=== PATIENT | female | born 1995 | race Caucasian/White ===

== ENCOUNTER 2019-02-07 21:30 | Outpatient (CLI) | payer OTHER, SELFPAY ==
[2019-02-07 22:07] VITALS: BMI 29.5
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
== END 2019-02-07 22:22 | disposition home or self-care (01) ==
LOC: WPOUT 21:52 → OBT 21:53
PROVIDERS: Visit Provider Obstetrics & Gynecology
DX: O9A.312 Physical abuse complicating pregnancy, second trimester (principal); S09.90XA Unspecified injury of head, initial encounter; S40.022A Contusion of left upper arm, initial encounter; S30.0XXA Contusion of lower back and pelvis, initial encounter; Y07.03 Male partner, perpetrator of maltreatment and neglect; Z87.891 Personal history of nicotine dependence; Z3A.24 24 weeks gestation of pregnancy
CPT/HCPCS: 59025; 59050; 99218; 99282; G0378

== ENCOUNTER 2019-02-07 22:55 | Emergency (ER) | payer OTHER, SELFPAY ==
[2019-02-07 22:07] VITALS: BMI 29.5
[2019-02-07 22:55] VITALS: BP 128/69; PULSE 107; RESP 20; TEMP 36.6; O2SAT 97; BMI 29.5
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
[2019-02-07 23:41] VITALS: BP 114/80; PULSE 76; RESP 16; O2SAT 100
== END 2019-02-07 23:42 | disposition home or self-care (01) ==
PROVIDERS: Emergency Provider Emergency Medicine
DX: O9A.312 Physical abuse complicating pregnancy, second trimester (principal); S09.90XA Unspecified injury of head, initial encounter; S40.022A Contusion of left upper arm, initial encounter; S30.0XXA Contusion of lower back and pelvis, initial encounter; Y07.03 Male partner, perpetrator of maltreatment and neglect; Z87.891 Personal history of nicotine dependence; Z3A.24 24 weeks gestation of pregnancy
CPT/HCPCS: 99282

== ENCOUNTER 2019-05-01 06:11 | Outpatient (CLI) | payer OTHER, SELFPAY ==
[2019-05-01 06:08] VITALS: BMI 33.8
[2019-05-01 06:48] LABS: ROM Internal Control Test YES-OK TO RESULT pt. (Internal QC); ROM Patient Test Negative (Negative)
[2019-05-01] MEDS: 0.9% NaCl Peripheral Flush Adult/Peds IV (06:50)
[2019-05-01 07:11] LABS: Bacteria 0 SEEN /hpf (None Seen); Mucous, Urine 0 SEEN /hpf (<or=2+); Red Blood Cells-Urine 0 SEEN /hpf (0-5); Squamous Epithelial Cells - UA 0 SEEN /hpf (5-10); White Blood Cells 0 SEEN /hpf (0-5)
[2019-05-01 07:14] LABS: Hematocrit 37.6 % (37-47); Hemoglobin 12.9 g/dl (12.0-15.0); Mean Corp Hgb Conc 34.3 g/gl (32-36); Mean Corpuscular Hgb 31.7 pg (27.0-32.0); Mean Corpuscular Volume 92.4 fL (81-99); Mean Platelet Vol. 11.4 fl (6.2-12.0); Platelet Count 221 K/mm3 (150-450); RBC Distribution Width SD 45.8 fl (35.1-43.9); Red Blood Count 4.07 M/mm3 (4.2-5.4); White Blood Count 13.3 K/mm3 (4.4-11.0)
[2019-05-01 07:15] LABS: Scan Indicated on CBC? Y/N NO
[2019-05-01 07:16] LABS: Color, Urine Yellow (Yellow); Glucose, Dipstick Normal (Normal); Ketone-Dipstick Negative (Negative); Leukocyte Esterase-Dipstick Negative /ul (Negative); Nitrite-Dipstick Negative (Negative); Occult Blood-Urine Negative /ul (Negative); Protein-Dipstick Negative (Negative); Specific Gravity, Urine 1.015 (1.002-1.030); Urine Bilirubin Dipstick Negative (Negative); Urine Clarity Clear (Clear); Urine Urobilinogen Normal (Normal)
[2019-05-01 07:22] LABS: Protein, Urine (Random) 6.1 mg/dL (<11.9); Protein:Creat Ratio 91 mg/g CRE (0-200)
[2019-05-01 07:23] LABS: International Normalized Ratio 0.9; Prothrombin Time (Protime)PT. 12.2 SECONDS (11.7-14.9)
[2019-05-01 07:24] LABS: Partial Thromboplast Time 26.7 Seconds (24.1-36.2)
[2019-05-01] MEDS: Acetaminophen 500 MG Tablet 1000 MG PO (07:25)
[2019-05-01 07:27] LABS: AST(SGOT) 14 U/L (15-37); Alanine Aminotransfer ALT/SGPT 14 U/L (13-56); Creatinine, Serum 0.56 mg/dL (0.55-1.02); EST Glomerular Filtration Rate 143 mL/min (>60); Est Glom Filt Rate - Afr Amer 173 mL/min (>60); Estimated Creatinine Clearance 145.01 ml/min; Uric Acid 5.8 mg/dL (2.6-6.0)
--- NOTE | 2019-05-01 08:49 | OB.TRI.HP_ITS ---
History of Present Illness Was patient seen by the physician?: Yes Reason For Visit: RULE OUT LABOR Date of Service: 05/01/19 Final REILLY: 05/26/19 Final REILLY Source: US <20 weeks Gestational age: 36 Weeks and 3 Days History of Present Illness: 24-year-old 1 para 0 who presents at 36+ weeks with headache and some contractions. Patient has been followed at [facility] and their OB unit closed so she planned delivery in [place]. care has been uneventful except for some vaginal infections which were treated and gave her a yeast infection. Baby has recently been noted to be in breech presentation. Due date confirmed with patient's phone carlos which showed a 10-week with an EDC of May 26, 2019. Patient lives in [place]. She plans delivery in [place] if delivery is after May 15 as her significant other would be available after that time. If it is before then she said she would probably come to [place]. Allergies No Known Allergies Allergy (Verified 05/01/19 06:10) Laboratory Studies: Laboratory Tests 05/01/19 05/01/19 05/01/19 Range/Units 06:50 06:50 06:50 WBC (4.4-11.0) K/mm3 RBC (4.2-5.4) M/mm3 Hgb (12.0-15.0) g/dl Hct (37-47) % MCV (81-99) fL MCH (27.0-32.0) pg MCHC (32-36) g/gl RDW (11.6-14.6) % RDW Differential (35.1-43.9) fl Plt Count (150-450) K/mm3 MPV (6.2-12.0) fl PT 12.2 (11.7-14.9) SECONDS INR 0.9 APTT 26.7 (24.1-36.2) Seconds Creatinine 0.56 (0.55-1.02) mg/dL Estim Creat Clear Calc 145.01 ml/min Est GFR (MDRD) Af Amer 173 (>60) mL/min Est GFR (MDRD) Non-Af 143 (>60) mL/min Uric Acid 5.8 (2.6-6.0) mg/dL AST 14 L (15-37) U/L ALT 14 (13-56) U/L Urine Color (Yellow) Urine Clarity (Clear) Urine pH (5.0 - 8.0) Ur Specific [place] (1.002-1.030) Urine Protein (Negative) mg/dl Urine Glucose (UA) (Normal) mg/dl Urine Ketones (Negative) mg/dl Urine Occult Blood (Negative) /ul Urine Nitrite (Negative) Urine Bilirubin (Negative) mg/dL Urine Urobilinogen (Normal) mg/dl Ur Leukocyte Esterase (Negative) /ul Urine RBC (0-5) /hpf Urine WBC (0-5) /hpf Ur Squamous Epith Cells (5-10) /hpf Urine Bacteria (None Seen) /hpf Urine Mucus (<or=2+) /hpf U Random Total Protein 6.1 (<11.9) mg/dL Urine Creatinine 66.90 (NO RANGE EST.) mg/dL Protein/Creatinin Ratio 91 (0-200) mg/g CRE Vag Amniotic Fld Detect (Negative) 05/01/19 05/01/19 05/01/19 Range/Units 06:50 06:50 05:45 WBC 13.3 H (4.4-11.0) K/mm3 RBC 4.07 L (4.2-5.4) M/mm3 Hgb 12.9 (12.0-15.0) g/dl Hct 37.6 (37-47) % MCV 92.4 (81-99) fL MCH 31.7 (27.0-32.0) pg MCHC 34.3 (32-36) g/gl RDW 14.0 (11.6-14.6) % RDW Differential 45.8 H (35.1-43.9) fl Plt Count 221 (150-450) K/mm3 MPV 11.4 (6.2-12.0) fl PT (11.7-14.9) SECONDS INR APTT (24.1-36.2) Seconds Creatinine (0.55-1.02) mg/dL Estim Creat Clear Calc ml/min Est GFR (MDRD) Af Amer (>60) mL/min Est GFR (MDRD) Non-Af (>60) mL/min Uric Acid (2.6-6.0) mg/dL AST (15-37) U/L ALT (13-56) U/L Urine Color Yellow (Yellow) Urine Clarity Clear (Clear) Urine pH 6.0 (5.0 - 8.0) Ur Specific [place] 1.015 (1.002-1.030) Urine Protein Negative (Negative) mg/dl Urine Glucose (UA) Normal (Normal) mg/dl Urine Ketones Negative (Negative) mg/dl Urine Occult Blood Negative (Negative) /ul Urine Nitrite Negative (Negative) Urine Bilirubin Negative (Negative) mg/dL Urine Urobilinogen Normal (Normal) mg/dl Ur Leukocyte Esterase Negative (Negative) /ul Urine RBC 0 SEEN (0-5) /hpf Urine WBC 0 SEEN (0-5) /hpf Ur Squamous Epith Cells 0 SEEN (5-10) /hpf Urine Bacteria 0 SEEN (None Seen) /hpf Urine Mucus 0 SEEN (<or=2+) /hpf U Random Total Protein (<11.9) mg/dL Urine Creatinine (NO RANGE EST.) mg/dL Protein/Creatinin Ratio (0-200) mg/g CRE Vag Amniotic Fld Detect Negative (Negative) Physical Exam General: Alert, Oriented x3, No apparent distress HEENT: Atraumatic, Normocephalic. Negative for: Thyromegaly, Lymphadenopathy Abdomen: Appropriate for Gestational Age Neurological: Deep Tendon Reflexes 2+/4 and Symmetrical, Neuro grossly intact Estimated gestational size: Appropriate for gestational size Presentation: Breech Cervix Dilation (cm): 1.5 Station: -3 Effacement (%): 50 - Per nurse check NST - FHR Rate Baby A NST Reactive:: Yes FHR Category:: Category I Impression/Plan 36+ week intrauterine with likely breech presentation with transient labor. Patient also had headache and PIH work-up is negative. Reactive nonstress test and ROM test negative. Continuing to monitor as contractions noted on monitor. If no cervical change we plan to release to home. Labor instructions given. Unable to obtain other records given that it is a Thursday today but if patient returns we will need to obtain balance of hardcopy records from her OB visits.
== END 2019-05-01 10:05 | disposition home or self-care (01) ==
LOC: WPOUT 05-02 07:58 → WP 05-03 07:27
PROVIDERS: Referring Provider Obstetrics & Gynecology; Visit Provider Obstetrics & Gynecology
DX: O32.1XX0 Maternal care for breech presentation, not applicable or unspecified (principal); R51 Headache; Z3A.36 36 weeks gestation of pregnancy
CPT/HCPCS: 36415; 59025; 59050; 81001; 82565; 82570; 84112; 84156; 84450; 84460; 84550; 85027; 85610; 85730; 99218; A4216; G0378

== ENCOUNTER 2019-05-08 14:50 | Outpatient (CLI) | payer OTHER, SELFPAY ==
[2019-05-08 15:36] VITALS: BMI 34.3
[2019-05-08 15:52] LABS: ROM Internal Control Test YES-OK TO RESULT pt. (Internal QC); ROM Patient Test Negative (Negative)
--- NOTE | 2019-05-08 20:55 | OB.TRI.NOTE ---
History of Present Illness Date of Service: 05/08/19 Was patient seen by the physician?: Yes Reason For Visit: R/O SROM Date of Service: 05/08/19 Final REILLY: 05/26/19 Final REILLY Source: US <20 weeks Gestational age: 37 Weeks and 3 Days History of Present Illness: 24 yo [id number] female at 37 3/7 wk with baby in breech presentation. Presents for ROM check after gush of fluid with picking up a large bag of dog food. Also recent intercourse within last day. No UCs noted. ROM plus test sent. Allergies No Known Allergies Allergy (Verified 05/01/19 06:10) Laboratory Studies: Laboratory Tests 05/08/19 Range/Units 15:10 Vag Amniotic Fld Detect Negative (Negative) Physical Exam General: Alert, Oriented x3, Cooperative, No apparent distress HEENT: Atraumatic Abdomen: Soft, Non Tender, Gravid Cervix Dilation (cm): 1.5 Station: -2 - No change per pt from her ofc exam. NST - FHR Rate Baby A Baseline: 120-140s with accels to 170-180 no decl Variability:: Moderate Accelerations:: 15 x 15 Decelerations:: None NST Reactive:: Yes, Appropriate for gestational age FHR Category:: Category I Uterine Activity:: Irreg UCs Impression/Plan 37 3/7 wk FALSE LABOR ROM test NEGATIVE. Likely incontinence related to lifting bag of dog food. Keep next ofc appt.
== END 2019-05-08 16:15 | disposition home or self-care (01) ==
LOC: WPOUT 15:02 → WP 15:03
PROVIDERS: Visit Provider Obstetrics & Gynecology
DX: O47.1 False labor at or after 37 completed weeks of gestation (principal); O32.1XX0 Maternal care for breech presentation, not applicable or unspecified; Z3A.37 37 weeks gestation of pregnancy
CPT/HCPCS: 59050; 84112; 99218; G0378

== ENCOUNTER 2019-06-27 17:46 | Emergency (ER) | payer OTHER, SELFPAY ==
[2019-06-27 17:47] VITALS: BP 129/78; PULSE 86; RESP 16; TEMP 36.6; O2SAT 97; BMI 31.1
--- NOTE | 2019-06-27 18:05 | CT_ITS ---
STUDY: CT ABDOMEN AND PELVIS WITH CONTRAST REASON FOR EXAM: Female, 24 years old. Lower abdominal pain. 5 weeks ago. RADIATION DOSAGE (If Supplied By Facility): CTDIvol = ( 14.48 ) mGy, DLP = ( 942.46 ) mGycm TECHNIQUE: Transaxial images were obtained from the dome of the diaphragm to the symphysis pubis without oral contrast. 100ml IV Isovue 370 was administered. Sagittal and coronal images were reconstructed. Individualized dose optimization techniques were used for this CT. COMPARISON: None. FINDINGS: The visualized lung bases are unremarkable. The visualized portions of the heart are within normal limits. Normal liver. Normal gallbladder and extrahepatic biliary system. Normal spleen. Normal pancreas. Normal bilateral adrenal glands. Normal right kidney. Normal left kidney. Normal visualized ureters. Normal visualized stomach. Normal small intestine. There is scattered colonic diverticulosis without acute inflammatory change. There is poor distention of the descending colon. The colon is otherwise unremarkable. The The appendix is visualized and appears normal. Normal abdominal aorta. Normal inferior vena cava. Normal retroperitoneum. Normal urinary bladder. Normal uterus. Normal adnexa. No pelvic lymphadenopathy. No free air or free fluid is seen within the peritoneal cavity. There is stranding across the lower abdomen suggesting prior Pfannenstiel incision. The abdominal wall is otherwise unremarkable. Normal osseous structures. CT/Abdomen/Pelvis W IV Cont ONLY IMPRESSION: No visualized acute intra-abdominal or pelvic abnormality. Electronically Signed: Thong Costa DO at 19:18 EDT Tel [phone], Service support ,
[2019-06-27] MEDS: Ketorolac 30 MG/ML Syringe IV (18:15)
--- NOTE | 2019-06-27 18:26 | ED.DCSUM_ITS ---
History of Present Illness Informant: Patient Onset: Weeks Context: Gradual Onset Timing: Continuous Current Severity: Moderate Maximum Severity: Severe Narrative: Patient is a 24-year-old female 5 weeks status post section presenting with pain at her incision site. Patient states the pain is worsened over the past 2 to 3 weeks. Pain is described as sharp. She states that she feels that she is 1 week post op again. She also notes there is discoloration she is concerned it is infectious. Patient denies any associated fever, chills, rash, nausea, vomiting, abnormal vaginal discharge, abnormal vaginal bleeding, hematuria or dysuria. Patient denies any other concerns at this time. She states that she called her PEDIATRIC ALLERGIST today who told her that they would see her at her 6 week appointment. Patient then decided to go to the ED for further evaluation. <Brianne Hu - Last Filed: 06/27/19 19:43> <Kd Loco - Last Filed: 06/27/19 21:33> Chief Complaint: Cellulitis Past Medical History Surgical History: - - C cection Smoking Status: Former smoker <Brianne Hu - Last Filed: 06/27/19 19:43> <Kd Loco - Last Filed: 06/27/19 21:33> - Allergies and Home Meds Allergies/Adverse Reactions: Allergies No Known Allergies Allergy (Verified 06/27/19 17:51) Primary Care Physician: Care Physician,No Primary [Primary Care Provider] - Doctor,Your [STAFF PHYSICIAN] - Review of Systems All systems negative except as indicated Skin: Reports: - - Pain at c section incision site <Brianne Hu - Last Filed: 06/27/19 19:43> Physical Exam Vital Signs/Narrative: Vital Signs Temp Pulse Resp BP Pulse Ox 06/27/19 17:47 97.9 F 86 16 129/78 H 97 Inital Vital Signs reviewed: Yes General: Well nourished, Well developed, No Acute Distress Head: Normocephalic, Atraumatic Eyes: Perrl, EOMI ENT: Moist mucous membranes, No rhinorrhea Neck: Supple, Nontender Cardiovascular: Regular rate, Regular rhythm, No murmurs Respiratory: No distress, CTA bilaterally, Chest nontender Abdomen: Soft, Nondistended, Normal bowel sounds, Tender - Tenderness palpation suprapubic region as well as over incision. Negative for: Guarding, Rebound tenderness Back: Nontender, Normal Inspection. Negative for: CVA tenderness Extremities: Nontender, No edema Skin: Normal color, No rash, - - Surgical incision appears to be healing well with no associated erythema, drainage, fluctuance or crepitus. There is dried what appears to be discolored Dermabond around the incision site Neurological: Alert, Oriented x3, Cranial nerves II-XII grossly intact, Normal Strength, Normal Sensation Psychological: Normal affect, Normal Mood <Brianne Hu - Last Filed: 06/27/19 19:43> Vital Signs/Narrative: Vital Signs Temp Pulse Resp BP Pulse Ox 06/27/19 20:28 84 16 121/76 H 98 06/27/19 17:47 97.9 F 86 16 129/78 H 97 <Kd Loco - Last Filed: 06/27/19 21:33> Diagnostic/Tx/Re-eval Clinical Impression(s) from Imaging Studies Abdomen/Pelvis CT 06/27/19 18:05 IMPRESSION: No visualized acute intra-abdominal or pelvic abnormality. Electronically Signed: Thong Costa DO at 19:18 EDT Tel [phone], Service support , Laboratory Data 06/27/19 06/27/19 06/27/19 18:15 18:15 18:15 WBC 10.0 RBC 4.32 Hgb 13.5 Hct 39.4 MCV 91.2 MCH 31.3 MCHC 34.3 RDW Std Deviation 39.5 RDW Coeff of [place] 11.8 Plt Count 293 MPV 10.2 Immature Gran % (Auto) 0.200 Neut % (Auto) 67.5 Lymph % (Auto) 24.8 [place] % (Auto) 5.4 Eos % (Auto) 1.9 Baso % (Auto) 0.2 Absolute Neuts (auto) 6.7 Absolute Lymphs (auto) 2.47 Nucleated RBC % 0 Sodium 140 Potassium 3.7 Chloride 106 Carbon Dioxide 28.0 Anion Gap 6 BUN 12 Creatinine 0.93 Estim Creat Clear Calc 87.32 Est GFR (MDRD) Af Amer 95 Est GFR (MDRD) Non-Af 79 BUN/Creatinine Ratio 12.9 Glucose 79 Calcium 8.9 Urine Color Yellow Urine Clarity Clear Urine pH 5.0 Ur Specific [place] 1.015 Urine Protein Negative Urine Glucose (UA) Normal Urine Ketones Negative Urine Occult Blood 25 H Urine Nitrite Negative Urine Bilirubin Negative Urine Urobilinogen Normal Ur Leukocyte Esterase 500 H Urine RBC 0-5 SEEN Urine WBC 0-5 SEEN Ur Squamous Epith Cells 0-5 SEEN Urine Bacteria 0 SEEN Urine Mucus 0 SEEN Diagnostic Data Abdomen/Pelvis CT 06/27/19 18:05 IMPRESSION: No visualized acute intra-abdominal or pelvic abnormality. Electronically Signed: Thong McneilonDO at 19:18 EDT Tel [phone], Service support , - Medical Decision Making Patient is evaluated for concern of incision site infection from her recent C- section. She appears nontoxic in no acute distress. She does have tenderness at her suprapubic region and over the incision but does not have any other signs of infection such as fluctuance, erythema or any systemic symptoms. Urinalysis does show 500 leuk esterase. Patient will be treated with Keflex and urine culture sent. CT of the abdomen pelvis does not show any abscess or hematoma. She has some mild soft tissue stranding which is consistent with her recent postoperative status. Patient is well-appearing with normal vital signs. She is a good candidate for outpatient follow-up. She is encouraged to follow up with her PEDIATRIC ALLERGIST. Patient is counseled on signs and symptoms requiring return to the emergency room. Patient verbalizes agreement and understand this plan. Patient discharged home in stable and improved condition. <Brianne Hu - Last Filed: 06/27/19 19:43> - Medical Decision Making Patient was seen and evaluated. There is very minimal erythema at her incision site. CT does not show any deep space infection. The patient will be treated with oral antibiotics. She was counseled that if her symptoms are not improving or worsening in any way over the next 24 to 48 hours return. She is agreeable with this plan of care. <Kd Loco - Last Filed: 06/27/19 21:33> ED Disposition <Brianne Hu - Last Filed: 06/27/19 19:43> <Kd Loco - Last Filed: 06/27/19 21:33> - Plan for ED Patient: Disposition: Home or Assisted Living Diagnosis: Urinary tract infection, Pain at surgical incision Instructions: Understanding Urinary Tract Infections (UTIs), Managing Post-Op Pain at Home: Non-Medication Relief Prescriptions: Ibuprofen [Ibu] 600 mg PO 4X/DAY PRN PRN #20 tab PRN Reason: Pain Prescription Printed Cephalexin [Keflex] 500 mg PO Q12 5 Days #10 cap Prescription Printed Referrals: Care Physician,No Primary [Primary Care Provider] - Doctor,Your [STAFF PHYSICIAN] - Additional Instructions: Return to the emergency room if you develop worsening symptoms, fever, nausea or vomiting. It is safe for you to continue breast-feeding/pumping at home with the medications that you received today.
[2019-06-27 18:30] LABS: Bacteria 0 SEEN /hpf (None Seen); Mucous, Urine 0 SEEN /hpf (<or=2+)
[2019-06-27 18:31] LABS: Color, Urine Yellow (Yellow); Glucose, Dipstick Normal (Normal); Ketone-Dipstick Negative (Negative); Leukocyte Esterase-Dipstick 500 /ul (Negative); Nitrite-Dipstick Negative (Negative); Occult Blood-Urine 25 /ul (Negative); Protein-Dipstick Negative (Negative); Specific Gravity, Urine 1.015 (1.002-1.030); Urine Bilirubin Dipstick Negative (Negative); Urine Clarity Clear (Clear); Urine Urobilinogen Normal (Normal)
[2019-06-27 18:38] LABS: Red Blood Cells-Urine 0-5 SEEN /hpf (0-5); Squamous Epithelial Cells - UA 0-5 SEEN /hpf (5-10); White Blood Cells 0-5 SEEN /hpf (0-5)
[2019-06-27 18:40] LABS: Absolute Lymphocyte Count 2.47 X10^3/uL (0.83-4.51); Absolute Neutrophil Count 6.7 X10^3/uL (2.0-7.7); Basophil# 0.02 X10^3/uL; Basophil% 0.2 % (0-1); Eosinophil# 0.19 X10^3/uL; Eosinophils% 1.9 % (0-5); Hematocrit 39.4 % (37-47); Hemoglobin 13.5 g/dL (12.0-15.0); Lymphocyte # 2.47 X10^3/ul (4.0); Lymphocyte % 24.8 % (19-41); Mean Corp Hgb Conc 34.3 g/dL (32-36); Mean Corpuscular Hgb 31.3 pg (27.0-32.0); Mean Corpuscular Volume 91.2 fL (81-99); Mean Platelet Vol. 10.2 fl (6.2-12.0); Monocyte# 0.54 X10^3/uL; Monocyte% 5.4 % (0-10); NRBC Flagged by Analyzer 0 % (0-5); Neutrophil # 6.71 X10^3/uL (2.7-7.7); Neutrophil % 67.5 % (47-70); Platelet Count 293 K/mm3 (150-450); RBC Distribution Width CV 11.8 % (11.6-14.6); RBC Distribution Width SD 39.5 fl (35.1-43.9); Red Blood Count 4.32 M/mm3 (4.2-5.4)
[2019-06-27 18:47] LABS: Anion Gap 6 (5-15); BUN 12 mg/dL (7-18); BUN/Creat Ratio 12.9 RATIO (10-20); Calcium,Total 8.9 mg/dL (8.5-10.1); Chloride 106 mmol/L (98-107); Creatinine, Serum 0.93 mg/dL (0.55-1.02); EST Glomerular Filtration Rate 79 mL/min (>60); Est Glom Filt Rate - Afr Amer 95 mL/min (>60); Estimated Creatinine Clearance 87.32 ml/min; Glucose 79 mg/dL (74-106); Potassium 3.7 mmol/L (3.5-5.1); Sodium Level 140 mmol/L (136-145)
[2019-06-27] MEDS: Cephalexin 250 MG Capsule 500 MG PO (20:24)
[2019-06-27 20:28] VITALS: BP 121/76; PULSE 84; RESP 16; O2SAT 98
== END 2019-06-27 20:29 | disposition home or self-care (01) ==
PROVIDERS: Emergency Provider Emergency Medicine
DX: O86.20 Urinary tract infection following delivery, unspecified (principal); G89.18 Other acute postprocedural pain; R10.30 Lower abdominal pain, unspecified; Z87.891 Personal history of nicotine dependence
CPT/HCPCS: 74177; 80048; 81001; 85025; 87086; 87088; 96374; 99284; Q9967; A4216